=== PATIENT | female | born 1930 | race Caucasian/White ===

== ENCOUNTER → 2016-06-04 | Outpatient (CLI) | payer OTHER, MEDICARE ==
[2016-06-04 16:32] LABS: BASOPHILS # (AUTO) 0.02 10*3/UL; BASOPHILS % (AUTO) 0.3 % (0-1); EOSINOPHILS % (AUTO) 5.2 % (0-8); HEMATOCRIT 40.1 % (37.0-47.0); HEMOGLOBIN 13.8 g/dL (12.0-16.0); IMM GRAN % (AUTO) 0.2 % (0-5); IMM GRAN# (AUTO) 0.01 10*3/UL; LYMPHOCYTES # (AUTO) 1.78 10*3/uL; LYMPHOCYTES % (AUTO) 28.8 % (10-50); MEAN CORPUSCULAR HEMOGLOBIN 31.5 PG (27-31); MEAN CORPUSCULAR HGB CONC 34.4 g/dL (33-37); MEAN PLATELET VOLUME 9.2 FL (7.4-12.2); MONOCYTES # (AUTO) 0.52 10*3/UL (0.3-0.8); MONOCYTES % (AUTO) 8.4 % (5-15); NEUTROPHILS # (AUTO) 3.54 10*3/UL; NEUTROPHILS % (AUTO) 57.1 % (50-80); RDW COEFFICIENT OF VARIATION 13.4 % (11.5-14.5); RED BLOOD COUNT 4.38 10^6/uL (4.20-5.40); WHITE BLOOD COUNT 6.19 10^3/uL (4.8-10.8)
[2016-06-04 16:39] LABS: PLATELET MORPHOLOGY COMMENT NORMAL MORPHOLOGY (NORM)
[2016-06-04 16:49] LABS: BILIRUBIN,TOTAL 0.5 mg/dL (0.3-1.2); BUN/CREATININE RATIO 22.5 (6-20); CREATININE 0.8 mg/dL (0.50-1.20); POTASSIUM 3.8 meq/L (3.8-5.2); TOTAL PROTEIN 7.6 g/dL (6.1-8.0)
== END ==
LOC: MOB LAB 15:04
PROVIDERS: ATTEND Internal Medicine
DX: I10 Essential (primary) hypertension (principal); E03.9 Hypothyroidism, unspecified; M81.0 Age-related osteoporosis without current pathological fracture
CPT/HCPCS: 36415; 80053; 80061; 82306; 84443; 85025

== ENCOUNTER → 2016-06-20 | Outpatient (CLI) | payer OTHER, MEDICARE | LOC: MMPC 11:11 | PROVIDERS: ATTEND Internal Medicine | DX: M81.0 Age-related osteoporosis without current pathological fracture (principal) | CPT/HCPCS: G0463; J0897 ==

== ENCOUNTER → 2016-11-28 | Outpatient (CLI) | payer OTHER, MEDICARE ==
[2016-11-28 09:32] LABS: BUN/CREATININE RATIO 22.85 (6-20); CALCIUM 9.2 mg/dL (8.7-10.7)
--- NOTE | 2016-11-28 17:13 | DI ---
CT BONE DENSITOMETRY OF THE SPINE AND HIP, 11/28/2016 8:27 AM : Clinical History: Age related osteoporosis. The patient does have compression fractures. Previous Exam: 10/02/2010; 11/11/2012; 11/23/2014. 3D Quantitative CT (QCT) Bone Mineral Densitometry: The [place] scans show a compression fracture of T12. Low dose scans are sampled through the midbodie s of L1 and L2. Average bone mineral density (BMD) is 54.7 mg/mL corresponding to a volumetric T-scor e of -4.4, and Z-score of -0.5. The [employer]'s (ACR) volumetric QCT BMD conversi on table categorizes this patient as having osteoporosis of the lumbar spine. The previous bone pension examiner al density values were 47.7, 46.9, and 53.5 mg per mL, respectively. CT X-Ray Absorptiometry (CTXA) Bone Mineral Densitometry of the Left Hip: Total hip BMD: 617 mg/cm2 T-score: -2.6 Z-score: NA Femoral neck BMD: 540 mg/cm2 T-score: -2.3 Z-score: NA READIN. There is an osteoporotic compression fracture of T12 indicating by definition this patient has se magdalena osteoporosis. 2. The QCT lumbar spine BMD value by ACR's 3D volumetric to 2D areal conversion categorizes this pat ient as having osteoporosis of the lumbar spine. The QCT spine T-score is -4.4. 3. The CTXA total hip and femoral neck BMD T-scores are -2.6 and -2.3, respectively. The left total hip T-score indicates this patient has osteoporosis of the total hip.
== END ==
LOC: LAB 08:16
PROVIDERS: ATTEND Internal Medicine
DX: M81.0 Age-related osteoporosis without current pathological fracture (principal)
CPT/HCPCS: 36415; 77078; 80048

== ENCOUNTER → 2016-12-01 | Outpatient (CLI) | payer OTHER, MEDICARE | LOC: MMPC 11:11 | PROVIDERS: ATTEND Internal Medicine | DX: M80.00XD Age-related osteoporosis with current pathological fracture, unspecified site, subsequent encounter for fracture with routine healing (principal); I10 Essential (primary) hypertension; E03.9 Hypothyroidism, unspecified; E78.5 Hyperlipidemia, unspecified ==

== ENCOUNTER → 2016-12-01 | Outpatient (CLI) | payer OTHER, MEDICARE | LOC: CT 15:00 | PROVIDERS: ATTEND Internal Medicine | DX: M81.0 Age-related osteoporosis without current pathological fracture (principal); I10 Essential (primary) hypertension; E03.9 Hypothyroidism, unspecified; E78.5 Hyperlipidemia, unspecified | CPT/HCPCS: 99213 ==

== ENCOUNTER → 2016-12-19 | Outpatient (CLI) | payer OTHER, MEDICARE | LOC: MMPC 11:11 | PROVIDERS: ATTEND Internal Medicine | DX: M81.0 Age-related osteoporosis without current pathological fracture (principal) | CPT/HCPCS: G0463; J0897 ==